=== PATIENT | male | born 2000 | race Caucasian/White ===

== ENCOUNTER 2021-06-17 12:19 | Emergency (ER) | payer SELFPAY ==
[~2021-06-17] VITALS: Ht 177.8 cm; Wt 74.0 kg
[2021-06-17 12:25] VITALS: BP 120/78
== END 2021-06-17 14:25 | disposition home or self-care (01) ==
LOC: ER 12:47
DX: F10.129 Alcohol abuse with intoxication, unspecified (principal); Y90.9 Presence of alcohol in blood, level not specified
CPT/HCPCS: 99283